=== PATIENT | female | born 1955 | race Caucasian/White ===

== ENCOUNTER 2016-09-23 08:48 | Outpatient (CLI) | payer MEDICARE ==
[2016-09-23] MEDS ORDERED: ISOSORBIDE DINI30 MG PO (09:41)
[2016-09-23] MEDS ORDERED: PLAVIX75 MG PO (09:42)
[2016-09-23] MEDS ORDERED: REMERON15 MG PO (09:43)
[2016-09-23] MEDS ORDERED: BAYER CHEWABLE81 MG PO (09:43)
[2016-09-23] MEDS ORDERED: XANAX XR0.5 MG PO (09:44)
[2016-09-23] MEDS ORDERED: LIPITOR20 MG PO (09:44)
[2016-09-23] MEDS ORDERED: PROPRANOLOL HCL20 MG PO (09:45)
[2016-09-23] MEDS ORDERED: OMEPRAZOLE20 M1 PO (09:45)
[2016-09-23] MEDS ORDERED: LEXAPRO20 MG PO (09:46)
[2016-09-23 10:13] LABS: BASOPHILS 0.3 % (0.0-2.0); EOSINOPHILS 1.1 % (0-7); HEMATOCRIT 40.8 % (36.0-48.0); HEMOGLOBIN 13.2 g/dL (12-16); IMMATURE GRANULOCYTES 0.2 % (0-5); LYMPHOCYTES 39.1 % (15-50); MCH 31.1 pg (26.0-34.0); MCHC 32.4 g/dL (31.0-37.0); MCV 96.2 fL (80.0-100.0); MONOCYTES 6.4 % (2-11); NEUTROPHILS 52.9 % (40-80); PLATELET COUNT 144 10x3/uL (130-400); RBC 4.24 10x6/uL (4.00-5.40); RDW 13.7 % (11.5-14.5); WBC 6.3 10x3/uL (4.8-10.8)
[2016-09-23 10:30] LABS: CALC OSMOLALITY 285 mosm/kg (275-300); CALCIUM 8.5 mg/dL (8.5-10.1); CARBON DIOXIDE 25.2 mmol/L (21.0-32.0); CHLORIDE - SERUM 108 mmol/L (98-107); CREATININE - SERUM 0.6 mg/dL (0.6-1.3); GLUCOSE 124 mg/dL (74-106); POTASSIUM - SERUM 3.5 mmol/L (3.5-5.1); SODIUM 143 mmol/L (136-145); UREA NITROGEN 12 mg/dL (7-18); eGFR NON AFRICAN AMERICAN > 90 mL/min (90-120)
== END 2016-09-23 17:57 | disposition home or self-care (01) ==
LOC: D.CATH 08:48
PROVIDERS: Internal Medicine Interventional Cardiology
DX: I25.119 Atherosclerotic heart disease of native coronary artery with unspecified angina pectoris (principal); I73.9 Peripheral vascular disease, unspecified
CPT/HCPCS: 93458; C9600

== ENCOUNTER 2016-10-07 08:47 | Outpatient (CLI) | payer MEDICARE ==
[~2016-10-07] VITALS: Ht 157.5 cm; Wt 84.1 kg
--- NOTE | ~2016-10-07 | HP ---
PATIENT: PRAVEEN SIFUENTES MEDICAL RECORD: [id number] ACCOUNT: [id number] LOCATION:[facility] : 51 ADMISSION DATE: 10/07/16 HISTORY AND PHYSICAL EXAMINATION ADMITTING DIAGNOSES: 1. Angina. 2. Coronary artery disease. 3. Recent percutaneous transluminal coronary angioplasty stent of the right coronary artery with concomitant disease of the left circumflex. 4. Hypertension. 5. Hyperlipidemia. HISTORY OF PRESENT ILLNESS: Mrs. Sifuentes presented with unstable anginal symptomatology, found to have 2-vessel disease of the RCA and left circumflex, underwent successful PTCA stent of the RCA. She is now brought back for PTCA stent of the circumflex in a staged fashion. PHYSICAL EXAMINATION: GENERAL APPEARANCE: Well-nourished, well-developed, appears stated age. Level of distress, comfortable. PSYCHIATRIC: Mental status, alert, normal affect. Orientation, oriented to time, place and person. EYES: Lids and conjunctiva, noninjected. No discharge, no pallor. ENT: Lips, teeth, gums, normal dentition. Oropharynx, no cyanosis, no pallor. NECK: Carotid arteries, bilateral normal upstroke, no bruits, no thrills. JUGULAR VEINS: No jugular venous pressure or distention. CERVICAL LYMPH NODES: Nontender, nonenlarged. THYROID: Not enlarged. Nontender. No nodules. LUNGS: Respiratory effort, unlabored. CHEST: Normal curvature. No thoracic deformity. No chest wall tenderness. Percussion, resonant. Auscultation, clear. No wheezes, no rales, no rhonchi. CARDIOVASCULAR: Precordial exam, nondisplaced. No heaves or pericardial thrills. Rate and rhythm, regular. Heart sounds, normal S1, normal S2. No S3, no gallop, no rub. Systolic murmur, not heard. Diastolic murmur, not heard. EXTREMITIES: No cyanosis, no edema. Peripheral pulses, full and equal in all extremities, except as noted. No bruits appreciated. ABDOMEN: Soft, nondistended. Normal aorta. No bruit. Nontender. No masses. Liver, nontender, no hepatomegaly. Spleen, nontender, no splenomegaly. MUSCULOSKELETAL: No joint tenderness. No joint swelling. No erythema. NEUROLOGICAL: Normal gait, normal strength, normal tone. SKIN: Warm and dry. REVIEW OF SYSTEMS: The patient reports easy bruising but reports no swollen glands. The patient reports no fever, no night sweats, no significant weight gain, no significant weight loss. No significant exercise tolerance. The patient reports no dry eyes, no irritation, no vision change. Patient reports no difficulty hearing and no ear pain. Patient reports no frequent nose bleeds or nose and sinus problems. Patient reports on arm pain on exertion. No shortness of breath while lying down. No history of heart murmur. Patient reports no cough, no wheezing or coughing up blood. Patient reports no abdominal pain, no vomiting. Normal appetite. No diarrhea and not vomiting blood. No nausea and no constipation. Patient reports no incontinence. No difficulty urinating. No hematuria. No increased frequency. Patient reports no muscle aches. No weakness, no arthralgias, no back pain. No swelling of the HISTORY AND PHYSICAL [id number] MARIA,PRAVEEN extremities. Patient reports no abnormal mole, no jaundice, no rashes. Reports no loss of consciousness. No weakness and no numbness. No seizures, dizziness, or headaches. The patient reports no depression, no sleep disturbance, feeling safe in a relationship and no alcohol abuse. Patient reports on fatigue. Reports no runny nose or sinus pressure. No itching, no hives, and no frequent sneezing. OVERALL IMPRESSION: Anginal symptomatology with significant disease of the left circumflex. We will proceed with percutaneous transluminal coronary angioplasty stent of the left circumflex. TRANSINT:[id number] Voice Confirmation ID: [id number] DOCUMENT ID: [id number] SAHARA KRISHNAN MD CC: [id number] DICTATION DATE: 10/07/16 0953 SOCIOLOGY RESEARCH ASSISTANT: 10/07/16 1100 REG [facility] [address] [place] [address]
--- NOTE | ~2016-10-07 | HEMODYNAMI ---
PATIENT:PRAVEEN SIFUENTES MEDICAL RECORD: [id number] : 51 LOCATION:[place] ADMISSION DATE: 10/07/16 Generatedon:10/07/201612:07 Patient name: PRAVEEN SIFUENTES Patient #: [id number] SSN: : Date of study: 10/07/2016 Page: Of Hemodynamic Procedure Report Patient Data Patient Demographics Procedure consent was obtained First Name: PRAVEEN Gender: Female Last Name: MARIA : 1955 Patient #: [id number] Age: 60 year(s) Race: Unknown Additional ID: [id number] Contact details [address]: [address] [place] [address] State: [place] City: [place] Zip code: [address] Past Medical History Allergies: No known allergies Admission Admission Data Admission Date: 10/07/2016 Admission Time: 8:47 Height (in.): 62 BSA: 1.85 (m2) Height (cm.): 157.48 BMI: 33.84 (kg/m2) Weight (lbs.): 185 Weight (kg.): 83.91 Medications upon Admission Medications Dosage Times Administered Last Remarks per Delivery Day Date and Time Clopidogrel Yes 10/07/2016 0:00 Lab Results Lab Result Date: 10/07/2016 Lab Result Time: 0:00 Biochemistry Name Units Result Min Max Creatinine mg/dl 0.6 --(*---)-- 0.6 1.3 CBC Name Units Result Min Max Hemoglobin g/dl 14 --(*---)-- 13.5 17.5 Procedure Procedure Types Cath Procedure PCI Procedure Coronary Stent Initial Miscellaneous Procedures Moderate Sedation up to 15 minutes Procedure Description Procedure Date Procedure Date: 10/07/2016 Procedure Start Time: 11:55 Procedure End Time: 12:06 Procedure Staff Name Function Shayne Miller MD Performing Physician Gary Whittaker RT Scrub Solomon Bautista RN Nurse Tori Aguirre RT Monitor Procedure Data Cath Procedure Fluoroscopy Diagnostic fluoroscopy Total fluoroscopy Time: 1.3 time: 1.3 min min Diagnostic fluoroscopy Total fluoroscopy dose: dose: 86.26 mGy 86.26 mGy Contrast Material Contrast Material Type Amount (ml) Isovue 300 39 Entry Location Entry Primary Successful Side Size Upsize Upsize Entry Closure Succes sful Closure Location (Fr) 1 (Fr) 2 (Fr) Remarks Device Remarks Femoral Left 6 Fr Exoseal artery Short Estimated blood loss: 10 ml Diagnostic catheters Device Type Used For End Catheter Placement Diagnostic Infinity 5Fr Right Coronary 3DRC catheter Angiography Procedure Complications No complications Procedure Medications Medication Administration Route Dosage Oxygen NC 2 l/min Heparin Flush Bag added to field 2 bags (1000units/500ml NS) 0.9% NaCl I.V. 100 ml/hr Fentanyl I.V. 50 mcg Versed I.V. 1 mg Fentanyl I.V. 50 mcg Versed I.V. 1 mg Fentanyl I.V. 50 mcg Fentanyl I.V. 50 mcg Heparin Bolus I.V. 4000 units Hemodynamics Rest BSA: 1.85 (m2) HGB: 14 (g/dl) O2 Consumption: Estimated: 162.16 (ml/min) O2 Cons umption indexed: Estimated:87.65 (ml/min/m) Heart Rate: 53 (bpm) Snapshots Pre Cath Intra NCS Post Cath Vital Signs Time Heart Resp SPO2 NIBP (mmHg) Rhythm Pain Sedation Rate (ipm) (%) Status Level (bpm) 11:36:12 53 21 95 140/70(97) NSR 0 (11) 10(A) , No pain 11:40:32 54 22 94 137/67(127) NSR 0 (11) 10(A) , No pain 11:44:42 55 19 94 117/69(104) NSR 0 (11) 10(A) , No pain 11:48:48 52 20 94 104/68(98) NSR 0 (11) 10(A) , No pain 11:52:58 48 19 95 109/65(80) NSR 0 (11) 9(A) , No pain 11:57:11 56 17 96 112/60(91) NSR 0 (11) 9(A) , No pain 12:01:26 48 18 93 103/63(86) NSR 0 (11) 9(A) , No pain 12:05:29 55 17 93 104/84(99) NSR 0 (11) 9(A) , No pain Medications Time Medication Route Dose Verified Delivered Reason Notes Effectiveness by by 11:40:35 Oxygen NC 2 Solomon Turpiny Per physician l/min Michele Bautista RN RN 11:40:48 Heparin Flush added 2 Solomon Solomon used for Bag to bags Michele Bautista RN procedure (1000units/500ml field RN NS) 11:41:23 0.9% NaCl I.V. 100 Solomon Turpiny Per physician ml/hr Michele Bautista RN RN 11:49:55 Fentanyl I.V. 50 Solomon Solomon for sedation mcg Michele Bautista RN RN 11:50:02 Versed I.V. 1 mg Solomon Solomon for sedation Michele Bautista RN RN 11:52:20 Fentanyl I.V. 50 Solomon Solomon for sedation mcg Michele Bautista RN RN 11:52:27 Versed I.V. 1 mg Solomon Solomon for sedation Michele Bautista RN RN 11:56:28 Fentanyl I.V. 50 Solomon Solomon for sedation mcg Michele Bautista RN RN 11:59:32 Fentanyl I.V. 50 Solomon Solomon for sedation mcg Michele Bautista RN RN 11:59:43 Heparin Bolus I.V. 4000 Solomon Solomon for units Michele Bautista RN anticoagulation ecd Log Time Note 11:09:13 Patient Height : 157.48 cm 11:09:15 Patient Weight : 83.91 kg 11:09:31 H&P Date Dictated: 10/07/2016 New H&P dictated by physician.. 11:09:39 ACC The patient was administered the following blood thiners within the last 24 hours: ACCPlavix 11:10:06 Solomon Bautista RN sent for patient. Start room use. 11:18:08 Time tracking: Regular hours 11:18:12 Plan of Care:Hemodynamics will remain stable., Cardiac rhythm will remain stable., Comfort level will be maintained., Respiratory function will remain adequate., Patient/ family verbilizes understanding of procedure., Procedure tolerated without complication., Recovers from procedure without complications.. 11:27:10 Patient received from Pre/Post Procedure Room to [facility] 3 Alert and oriented. Tansferred to table in Supine position. 11:27:11 Warm blankets applied, and fredi hugger turned on for patient comfort. 11:27:11 Correct patient and procedure confirmed by team. 11:27:13 Signed procedure consent form obtained from patient. 11:27:14 ECG and BP/O2 sat monitors applied to patient. 11:27:15 Full Disclosure recording started 11:35:06 Vital chart was started 11:36:17 Baseline sample Acquired. 11:36:22 Rhythm: sinus bradycardia 11:36:25 Pre-procedure instructions explained to patient. 11:36:25 Pre-op teaching completed and patient verbalized understanding. 11:36:28 Family in waiting room. 11:36:30 Patient NPO since Midnight. 11:36:45 Is the patient allergic to Iodine/contrast media? No. 11:36:47 Is patient on blood thinner?Yes 11:36:49 ACC The patient was administered the following blood thiners within the last 24 hours: ACCPlavix 11:36:55 Patient diabetic? No. 11:36:58 Previous problem with sedation/anesthesia? No ? 11:36:59 Snore? Yes 11:37:00 Sleep apnea? No 11:37:01 Deviated septum? No 11:37:02 Opens mouth fully? Yes 11:37:02 Sticks out tongue? Yes 11:37:05 Airway obstruction? No ? 11:37:12 Dentures? Yes In 11:37:15 Pre procedure: left dorsailis pedis pulse 2+ Normal; easily identifiable; not easily obliterated 11:37:17 Patient pain scale 0/10 ?. 11:37:26 IV patent on arrival in left forearm with 0.9% NaCl at [facility]. 11:37:50 Lab Result : Creatinine 0.6 mg/dl 11:37:50 Lab Result : Hemoglobin 14 g/dl 11:37:53 Lab results completed and on chart. 11:37:56 Left groin area was prepped with chlora-prep and draped in sterile fashion 11:37:56 Alarms reviewed by R. N. 11:37:57 Sharps counted by scrub and verified by R.N. 11:38:10 Use device set Femoral PCI 11:38:11 Acist Syringe opened to sterile field. 11:38:11 Acist Hand Control opened to sterile field. 11:38:12 Bag Decanter opened to sterile field. 11:38:12 Medline Cath Pack opened to sterile field. 11:38:13 Terumo 6Fr Eastpointe Sheath opened to sterile field. 11:38:13 St Carlos A 260cm J .035 wire opened to sterile field. 11:38:14 Merit BasixCompak Inflation Kit opened to sterile field. 11:38:14 Acist Manifold opened to sterile field. 11:38:14 Tegaderm 4 x 4 opened to sterile field. 11:38:20 Mejia Whisper J 300cm 0.014 guide wire opened to sterile field. 11:40:35 Oxygen 2 l/min NC was administered by Solomon Bautista RN; Per physician; 11:40:48 Heparin Flush Bag (1000units/500ml NS) 2 bags added to field was administered by Solomon Bautista RN; used for procedure; 11:41:23 0.9% NaCl 100 ml/hr I.V. was administered by Solomon Bautista RN; Per physician; 11:49:24 Final Timeout: patient, procedure, and site verified with staff and physician. All members of the team are in agreement. 11:49:26 Left groin site verified by team. 11:49:29 Physical assessment completed. ASA score P 2 - A patient with mild systemic disease as per Shayne Miller MD. 11:49:31 Sedation plan: IV Moderate Sedation Versed, Fentanyl 11:49:33 Zero performed for pressure channel P1 11:49:55 Fentanyl 50 mcg I.V. was administered by Solomon Bautista RN; for sedation; 11:50:02 Versed 1 mg I.V. was administered by Solomon Bautista RN; for sedation; 11:52:20 Fentanyl 50 mcg I.V. was administered by Solomon Bautista RN; for sedation; 11:52:27 Versed 1 mg I.V. was administered by Solomon Bautista RN; for sedation; 11:55:38 Procedure started. 11:55:42 Local anesthetic to left femerol artery with Lidocaine 2% by Shayne Miller MD.INITIAL ACCESS ONLY 11:56:28 Fentanyl 50 mcg I.V. was administered by Solomon Bautista RN; for sedation; 11:56:53 A 6 Fr Short sheath was inserted into the Left Femoral artery 11:57:18 6 Fr XBLAD 3.5 guide catheter was inserted over the wire 11:59:32 Fentanyl 50 mcg I.V. was administered by Solomon Bautista RN; for sedation; 11:59:43 Heparin Bolus 4000 units I.V. was administered by Solomon Bautista RN; for anticoagulation; 12:00:21 Whisper wire advanced. 12:00:45 Inflation Number: 1 A Medtronic Resolute 3.0 X 12 stent was prepped and advanced across the Prox CX. The stent was deployed at 15 NIMO for 0:10 (min:sec). 12:00:53 Stent catheter was removed intact over wire. 12:00:53 Wire removed. 12:00:53 Guide catheter removed. 12:01:23 A Diagnostic Infinity 5Fr 3DRC catheter was advanced over the wire and used for Right Coronary Angiography. 12::44 Catheter removed. 12:02:51 Sheath removed intact; hemostasis achieved with Exoseal to the Left Femoral artery. 12:02:55 Procedure ended.(Physican Out) 12:03:00 Cordis 6Fr Exoseal opened to sterile field. 12:03:08 Fluoroscopy time 01.30 minutes. 12:03:13 Flurop Dose total: 86.26 12:03:13 Fluoroscopy dose: 86.26 mGy 12:03:22 Contrast amount:Isovue 300 39ml. 12:03:23 Sharps counted by scrub and verified by R.N. 12:03:24 Insertion/operative site no bleeding no hematoma. 12:03:27 Post-op/insertion site Left Femoral artery dressed using a 4 x 4 and Tegaderm. 12:03:31 Post left femerol artery:stable, clean and dry 12:03:35 Post Procedure Pulses reassessed and unchanged 12:03:43 Post-procedure physical assessment completed. ASA score P 2 - A patient with mild systemic disease as per Shayne Miller MD. 12:03:45 Post procedure rhythm: unchanged. 12:03:47 Estimated blood loss: 10 ml 12:03:49 Post procedure instruction explained to patient.Patient verbalizes understanding. 12:03:49 Patient needs reinforcement of post procedure teaching. 12:04:36 Procedure type changed to Cath procedure, PCI procedure, Coronary Stent Initial, Miscellaneous Procedures, Moderate Sedation up to 15 minutes 12:04:41 Procedure Complication : No complications 12:04:44 See physician's report for complete and final results. 12:05:30 Cordis 6FR XBLAD 3.5 guide catheter opened to sterile field. 12:05:52 Procedure and supply charges have been captured, reviewed, submitted and are correct. 12:05:58 Report given to Pre/Post Procedure Room. 12:06:47 Patient transfered to Pre/Post Procedure Room with Stretcher. 12:06:47 Vital chart was stopped 12:06:49 Procedure ended. 12:06:49 Full Disclosure recording stopped 12:07:02 End room use (Document Last) Intervention Summary Intervention Notes Time ActionType Lesion and Equipment Action# Pressure Duration Attributes Used 12:00:45 Place stent Prox CX Medtronic 1 15 00:10 Resolute 3.0 X 12 stent Device Usage Item Name Manufacture Quantity Catalog Hospital Part Current Minimal Lot# / Number Charge Number Stock Stock Serial# Code Acist Acist 1 54598 275641 022401 078362 20 Syringe Medical Systems Inc Acist Hand Acist 1 30648 873333 944007 525101 5 Travel Notes Medical Systems Inc Bag Microtek 1 2002S 423771 46771 623457 5 Yooli Medical Inc. Medline Cardinal 1 [id number] 909267 28310 543248 5 Cath Pack Health Terumo 6Fr Terumo 1 [id number] 311589 612064 382604 [address] [facility] A [facility] Carlos A 1 217137 057165 609310 651502 30 260cm J .035 wire Merit Merit 1 [id number] 738563 108388 250305 15 BasixBio-Intervention Specialists Medical Inflation Kit Acist Acist 1 09951 370679 283869 541277 5 mobile melting gmbh Medical Systems Inc Tegaderm 4 3M 1 1626W 687365 724889 876574 5 x 4 Mejia Mejia 1 [id number] 476850 619198 943620 5 Whisper J Vascular 300cm 0.014 guide wire Medtronic Medtronic 1 [id number] 473389 249789 0 [id number] Resolute 3.0 X 12 stent Diagnostic Cardinal 1 [id number] 057262 116560 640637 9 Repka.com 5Fr 3DRC catheter Cordis 6Fr Cardinal 1 EX600 750791 903673 674272 10 Groopt Cordis 6FR Cardinal 1 [id number] 594929 074444 376410 10 XBLAD 3.5 Health guide catheter Signature Audit [place] Stage Time Signature Unsigned Intra-Procedure 10/07/2016 Tori 12:07:47 PM Counts RT(R) Signatures Monitor : Tori Signature : Counts RT Date : Time : [address] [place] [address]
--- NOTE | ~2016-10-07 | OP ---
PATIENT NAME: PRAVEEN SIFUENTES MEDICAL RECORD: [id number] :51 LOCATION:D.CAT ADMISSION DATE: SURGEON: SAHARA KRISHNAN MD DATE OF OPERATION: 10/07/2016 PROCEDURES: 1. PTCA stent, left circumflex. 2. Selective coronary angiography. INDICATIONS: Angina and coronary artery disease. PROCEDURE IN DETAIL: After informed consent was obtained and after a detailed explanation of risks, benefits as well as alternative therapies, the patient elected to proceed with angiogram and angioplasty. The right femoral area was prepped and draped in normal sterile fashion. The right femoral artery was cannulated via modified Seldinger technique with placement of 6-Arabic sheath. All catheters exchanged through this sheath. FINDINGS: The left circumflex has a 70%-80% stenosis in the proximal vessel. This was addressed with a 3.0 x 12 mm Resolute stent taken to 15 atmospheres. Result was 0% residual stenosis. OVERALL IMPRESSION: Successful percutaneous transluminal coronary angioplasty stent of the left circumflex going from 70%-80% initial stenosis to 0% residual. TRANSINT:[id number] Voice Confirmation ID: [id number] DOCUMENT ID: [id number] SAHARA KRISHNAN MD CC: [id number] DICTATION DATE: 10/07/16 1205 LIEN SEARCHER: 10/07/162020 [facility] CLI 10/07/16 [place] [id number] [place] [address]
[~2016-10-07 08:47] MED LIST: BAYER CHEWABLE81 MG PO; ISOSORBIDE DINI30 MG PO; LEXAPRO20 MG PO; LIPITOR20 MG PO; OMEPRAZOLE20 M1 PO; PLAVIX75 MG PO; PROPRANOLOL HCL20 MG PO; REMERON15 MG PO; XANAX XR0.5 MG PO
[2016-10-07 09:35] VITALS: BP 135/62; Ht 157.5 cm; Wt 84.1 kg
[2016-10-07 10:08] LABS: BASOPHILS 0.3 % (0.0-2.0); EOSINOPHILS 1.7 % (0-7); HEMATOCRIT 42.6 % (36.0-48.0); IMMATURE GRANULOCYTES 0.2 % (0-5); LYMPHOCYTES 31.1 % (15-50); MCH 31.4 pg (26.0-34.0); MCHC 32.9 g/dL (31.0-37.0); MCV 95.5 fL (80.0-100.0); MEAN PLATELET VOLUME 9.7 fL (7.4-10.4); MONOCYTES 8.1 % (2-11); NEUTROPHILS 58.6 % (40-80); PLATELET COUNT 153 10x3/uL (130-400); RBC 4.46 10x6/uL (4.00-5.40); RDW 13.9 % (11.5-14.5)
[2016-10-07 10:16] LABS: CALC OSMOLALITY 285 mosm/kg (275-300); CALCIUM 8.5 mg/dL (8.5-10.1); CARBON DIOXIDE 24.6 mmol/L (21.0-32.0); CHLORIDE - SERUM 108 mmol/L (98-107); CREATININE - SERUM 0.6 mg/dL (0.6-1.3); GLUCOSE 122 mg/dL (74-106); POTASSIUM - SERUM 3.8 mmol/L (3.5-5.1); SODIUM 143 mmol/L (136-145); UREA NITROGEN 12 mg/dL (7-18); eGFR NON AFRICAN AMERICAN > 90 mL/min (90-120)
--- NOTE | 2016-10-07 15:17 | NUR ---
1235 LYING FLAT, RESTING WITH EYES CLOSED. ALL VITALS WNL. LEFT GROIN EXOSEAL C/D/I WITH NO HEMATOMA OR BLEEDING. FAMILY AT SIDE. 1330 REMAINS FLAT, R GROIN C/D/I WITH NO HEMATOMA OR BLEEDING. PULSES PALP X4.
--- NOTE | 2016-10-07 15:28 | NUR ---
1330 PATIENT C/O BACK PAIN. NORCO GIVEN ...WILL MONITOR FOR EFFECTIVENESS.
--- NOTE | 2016-10-07 16:23 | NUR ---
1430 EATING TURKEY SANDWICH, FAMILY AT SIDE. L GROIN REMAINS C/D/I WITH NO HEMATOMA OR BLEEDING. ALL VITALS WNL. 1530 SITTING UP IN BED, PIV REMOVED FROM LEFT HAND WITH BANDAID APPLIED. 1600 UP TO BEDSIDE TO DRESS. D/C INSTRUCTIONS DISCUSSED WITH PATIENT AND FAMILY AT BEDSIDE. L GROIN REMAINS C/D/I WITH NO HEMATOMA OR BLEEDING. WHEELED OUT VIA WHEELCHAIR.
== END 2016-10-07 16:27 | disposition home or self-care (01) ==
LOC: D.CATH 08:47
PROVIDERS: Internal Medicine Interventional Cardiology
DX: I25.119 Atherosclerotic heart disease of native coronary artery with unspecified angina pectoris (principal); Z95.5 Presence of coronary angioplasty implant and graft; I10 Essential (primary) hypertension; E78.5 Hyperlipidemia, unspecified

== ENCOUNTER 2016-10-10 01:09 | Outpatient (CLI) | payer MEDICARE ==
--- NOTE | ~2016-10-10 | HEMODYNAMI ---
PATIENT:PRAVEEN SIFUENTES MEDICAL RECORD: [id number] : 51 LOC[address] [id number] ADMISSION DATE: 10/10/16 Generatedon:10/10/201613:15 Patient name: PRAVEEN SIFUENTES Patient #: [id number] : 1955 Date of study: 10/10/2016 Page: Of Hemodynamic Procedure Report Patient Data Patient Demographics Procedure consent was obtained First Name: PRAVEEN Gender: Female Last Name: MARIA : 1955 [facility] Initial: L Age: 60 year(s) Patient #: [id number] Race: Unknown SSN: [id number] Additional ID: [id number] Contact details Address: [address] [place] [address] State: [place] City: [place] Zip code: [address] Past Medical History Allergies: No known allergies Admission Admission Data Admission Date: 10/10/2016 Admission Time: 1:00 Room #: 2125 Lab Results Lab Result Date: 10/07/2016 Lab Result Time: 0:00 Biochemistry Name Units Result Min Max Creatinine mg/dl 0.6 --(*---)-- 0.6 1.3 CBC Name Units Result Min Max Hemoglobin g/dl 14 --(*---)-- 13.5 17.5 Procedure Procedure Types Cath Procedure Diagnostic Procedure LHC [facility] w/Coronaries PCI Procedure Miscellaneous Procedures Moderate Sedation up to 15 minutes Peripheral Cath Diagnostic Procedure Cath Peripheral Ticmq-Cdepbqb-Qzb-Off Procedure Description Procedure Date Procedure Date: 10/10/2016 Procedure Start Time: 12:48 Procedure End Time: 13:15 Procedure Staff Name Function Shayne Miller MD Performing Physician Brinda Davidson RT Scrub Arleen Jimenez RN Nurse Yanique Oscar RT Monitor Procedure Data Cath Procedure Fluoroscopy Diagnostic fluoroscopy Total fluoroscopy Time: 4.6 time: 4.6 min min Diagnostic fluoroscopy Total fluoroscopy dose: 687 dose: 687 mGy mGy Contrast Material Contrast Material Type Amount (ml) Isovue 300 149 Entry Location Entry Primary Successful Side Size Upsize Upsize Entry Closure Succes sful Closure Location (Fr) 1 (Fr) 2 (Fr) Remarks Device Remarks Femoral Right 6 Fr Exoseal artery Short Estimated blood loss: 10 ml Diagnostic catheters Device Type Used For End Catheter Placement Cordis 5Fr 3DRC Catheter Procedure (MP) Cordis 5Fr Pigtail Abdominal Catheter (MP) aortogram with runoff Procedure Complications No complications Procedure Medications Medication Administration Route Dosage Oxygen NC 2 l/min Lidocaine 2% added to field 20 Heparin Flush Bag added to field 2 bags (1000units/500ml NS) 0.9% NaCl I.V. 100 ml/hr Versed I.V. 1 mg Fentanyl I.V. 50 mcg Heparin Bolus I.V. 4000 units Versed I.V. 1 mg Fentanyl I.V. 50 mcg Versed I.V. 0.5 mg Fentanyl I.V. 25 mcg Plavix P.O. 75 mg Hemodynamics Rest HGB: 14 (g/dl) Heart Rate: 85 (bpm) Snapshots Pre Cath Intra NCS Post Cath Vital Signs Time Heart Resp SPO2 etCO2 [id number] NIBP (mmHg) Rhythm Pain Sedation Rate (ipm) (%) (mmHg) (mmHg) Status Level (bpm) 12:37:27 80 27 96 0 0 119/72(99) NSR 0 (11) 10(A) , No pain 12:41:38 75 23 94 0 0 107/61(90) NSR 0 (11) 10(A) , No pain 12:45:42 70 17 94 0 0 117/75(90) NSR 0 (11) 10(A) , No pain 12:49:50 69 15 93 0 0 112/76(102) NSR 0 (11) 10(A) , No pain 12:53:56 74 16 94 0 0 109/75(99) NSR 0 (11) 9(A) , No pain 12:58:01 78 17 95 0 0 111/77(102) NSR 0 (11) 9(A) , No pain 13:02:50 82 15 94 0 0 128/86(107) NSR 0 (11) 9(A) , No pain 13:07:00 83 16 94 0 0 135/86(114) NSR 0 (11) 10(A) , No pain 13:11:14 83 12 93 0 0 134/75(116) NSR 0 (11) 10(A) , No pain Medications Time Medication Route Dose Verified Delivered Reason Notes Effectiveness by by 12:41:32 Oxygen NC 2 Shayne Joseie used for l/min Paul Jimenez RN procedure 12:41:38 Lidocaine 2% added 20ml Shaynelisseth Bella for local to vial Paul Miller MD anesthetic field 12:41:44 Heparin Flush added 2 Shayne Shayne used for Bag to bags Paul Miller MD procedure (1000units/500ml field NS) 12:41:52 0.9% NaCl I.V. 100 Shaynelisseth Garciaie Per physician ml/hr Paul Jimenez RN 12:48:42 Versed I.V. 1 mg Shayne Bacon for sedation Paul Jimenez RN 12:48:48 Fentanyl I.V. 50 Shayne Bacon for sedation mcg Paul Jimenez RN 12:53:44 Heparin Bolus I.V. 4000 Shayne Bacon for verifi ed units Paul Jimenez RN anticoagulation with dr miller 12:55:21 Versed I.V. 1 mg Shayne Bacon for sedation Paul Jimenez RN 12:55:25 Fentanyl I.V. 50 Shayne Bacon for sedation mcg Paul Jimenez RN 13:01:21 Versed I.V. 0.5 Shayne Garciaie for sedation mg Paul Jimenez RN 13:01:27 Fentanyl I.V. 25 Shayne Bacon for sedation mcg Paul Jimenez RN 13:08:00 Plavix P.O. 75 mg Shayne Bacon for Paul Jimenez RN antiplatelet therapy Procedure Log Time Note 12:20:39 Diagnostic Cath Status : Elective 12:21:25 Arleen Jimenez RN sent for patient. Start room use. 12:22:22 Time tracking: Regular hours 12:22:28 Plan of Care:Hemodynamics will remain stable., Cardiac rhythm will remain stable., Comfort level will be maintained., Respiratory function will remain adequate., Patient/ family verbilizes understanding of procedure., Procedure tolerated without complication., Recovers from procedure without complications.. 12:22:49 Patient received from Med II to CCL 1 Alert and oriented. Tansferred to table in Supine position. 12:34:34 Warm blankets applied, and fredi hugger turned on for patient comfort. 12:34:35 Correct patient and procedure confirmed by team. 12:34:38 Signed procedure consent form obtained from patient. 12:34:39 ECG and BP/O2 sat monitors applied to patient. 12:36:24 Vital chart was started 12:36:29 Baseline sample Acquired. 12:37:20 Rhythm: sinus rhythm 12:37:22 Full Disclosure recording started 12:37:27 H&P Date Dictated: 10/10/2016 New H&P dictated by physician.. 12:37:28 Pre-procedure instructions explained to patient. 12:37:29 Pre-op teaching completed and patient verbalized understanding. 12:37:30 Family in waiting room. 12:37:31 Patient NPO since Midnight. 12:37:39 Is the patient allergic to Iodine/contrast media? No. 12:37:41 Was the patient premedicated? No 12:37:42 Is patient on blood thinner?Yes 12:37:47 ACC The patient was administered the following blood thiners within the last 24 hours: ACCPlavix 12:37:50 Patient diabetic? No. 12:37:58 Previous problem with sedation/anesthesia? No ? 12:39:28 Snore? Yes 12:39:31 Sleep apnea? No 12:39:32 Deviated septum? No 12:39:34 Opens mouth fully? Yes 12:39:41 Dentures? No ? 12:39:49 Patient pain scale 0/10 ?. 12:40:00 IV patent on arrival in left forearm with 0.9% NaCl at [facility]. 12:40:43 Lab results completed and on chart. 12:40:49 Right groin area was prepped with chlora-prep and draped in sterile fashion 12:40:50 Alarms reviewed by R. N. 12:40:50 Sharps counted by scrub and verified by R.N. 12:41:32 Oxygen 2 l/min NC was administered by Arleen Jimenez RN; used for procedure; 12:41:38 Lidocaine 2% 20ml vial added to field was administered by Shayne Miller MD; for local anesthetic; 12:41:44 Heparin Flush Bag (1000units/500ml NS) 2 bags added to field was administered by Shayne Miller MD; used for procedure; 12:41:52 0.9% NaCl 100 ml/hr I.V. was administered by Arleen Jimenez RN; Per physician; 12:44:10 Physician paged 12:47:47 Physician arrived 12:47:47 --------ALL STOP TIME OUT------ 12:47:49 Final Timeout: patient, procedure, and site verified with staff and physician. All members of the team are in agreement. 12:47:53 Right groin site verified by team. 12:47:59 Sedation plan: IV Moderate Sedation Versed, Fentanyl 12:48:34 Procedure started. 12:48:42 Versed 1 mg I.V. was administered by Arleen Jimenez RN; for sedation; 12:48:48 Fentanyl 50 mcg I.V. was administered by Arleen Jimenez RN; for sedation; 12:48:51 Local anesthetic to right femoral artery with Lidocaine 2% by Shayne Miller MD.INITIAL ACCESS ONLY 12:49:02 A 6 Fr Short sheath was inserted into the Right Femoral artery 12:50:03 Use device set Femoral Dx 12:50:11 Acist Syringe opened to sterile field. 12:50:12 Bag Decanter opened to sterile field. 12:50:14 Medline Cath Pack opened to sterile field. 12:50:24 Terumo 6Fr Paterson Sheath opened to sterile field. 12:50:25 St Carlos A 260cm J .035 wire opened to sterile field. 12:50:36 A Cordis 5Fr 3DRC Catheter (MP) was advanced over the wire and used for Procedure. 12:50:46 RCA angiography performed. 12:50:49 Catheter removed. 12:50:55 Acist Hand Control opened to sterile field. 12:50:56 Acist Manifold opened to sterile field. 12:50:58 Tegaderm 4 x 4 opened to sterile field. 12:51:35 Cordis 6FR XBLAD 3.5 guide catheter opened to sterile field. 12:51:53 LCA angiography performed. 12:52:54 Merit BasixCompak Inflation Kit opened to sterile field. 12:53:16 Mejia Whisper J 300cm 0.014 guide wire opened to sterile field. 12:53:44 Heparin Bolus 4000 units I.V. was administered by Arleen Jimenez RN; for anticoagulation; verified with dr miller 12:54:08 Proceeding to intervention. 12:54:18 Whisper wire advanced. 12:55:21 Versed 1 mg I.V. was administered by Arleen Jimenez RN; for sedation; 12:55:25 Fentanyl 50 mcg I.V. was administered by Arleen Jimenez RN; for sedation; 13:00:34 IVUS catheter advanced over wire. 13:00:59 IVUS catheter removed over wire. 13:01:17 [place] Eagleye IVUS Catheter opened to sterile field. 13:01:21 Versed 0.5 mg I.V. was administered by Arleen Jimenez RN; for sedation; 13:01:27 Fentanyl 25 mcg I.V. was administered by Arleen Jimenez RN; for sedation; 13:02:06 Inflation Number: 1 A Shutter Guardiantronic Resolute 3.0 X 15 stent was prepped and advanced across the Prox LAD. The stent was deployed at 11 NIMO for 0:10 (min:sec). 13:03:26 Stent catheter was removed intact over wire. 13:03:31 Wire removed. 13:03:33 Guide catheter removed. 13:04:09 A Cordis 5Fr Pigtail Catheter (MP) was advanced over the wire and used for Abdominal aortogram with runoff. 13:04:31 Abdominal angiogram w/ runoff was performed. 13:04:41 Left leg runoff performed. 13:05:01 Right leg runoff performed. 13:05:15 Catheter removed. 13:07:36 Cordis 6Fr Exoseal opened to sterile field. 13:07:49 Sheath removed intact; hemostasis achieved with Exoseal to the Right Femoral artery. 13:07:52 Procedure ended.(Physican Out) 13:08:00 Plavix 75 mg P.O. was administered by Arleen Jimenez RN; for antiplatelet therapy; 13:08:09 Fluoroscopy time 04.60 minutes. 13:08:16 Fluoroscopy dose: 687 mGy 13:08:16 Flurop Dose total: 687 13:08:31 Contrast amount:Isovue 300 149ml. 13:08:34 Sharps counted by scrub and verified by R.N. 13:08:38 Insertion/operative site no bleeding no hematoma. 13:08:42 Post-op/insertion site Right Femoral artery dressed using a 4 x 4 and Tegaderm. 13:08:48 Post Procedure Pulses reassessed and unchanged 13:08:52 Post-procedure physical assessment completed. ASA score P 2 - A patient with mild systemic disease as per Shayne Miller MD. 13:08:58 Post procedure rhythm: unchanged. 13:09:07 Estimated blood loss: 10 ml 13:09:16 Post procedure instruction explained to patient.Patient verbalizes understanding. 13:10:09 Procedure type changed to Cath procedure, Diagnostic procedure, LHC, LHC w/Coronaries, PCI procedure, Miscellaneous Procedures, Moderate Sedation up to 15 minutes, Peripheral Cath Diagnostic Procedure, Cath Peripheral, Kwxol-Ofjtaet-Vrz-Off 13:10:11 Procedure and supply charges have been captured, reviewed, submitted and are correct. 13:14:50 Procedure Complication : No complications 13:14:53 Vital chart was stopped 13:14:54 See physician's report for complete and final results. 13:15:00 Patient transfered to [facility] II with Stretcher. 13:15:03 Procedure ended. 13:15:03 Full Disclosure recording stopped 13:15:06 End room use (Document Last) 13:15:06 End room use (Document Last) Intervention Summary Intervention Notes Time ActionType Lesion and Equipment Action# Pressure Duration Attributes Used 13:02:[address] Place stent Prox LAD Medtronic 1 11 00:10 Resolute 3.0 X 15 stent Device Usage Item Name Manufacture Quantity Catalog Hospital Part Current Minimal Lot# / Number Charge Number Stock Stock Serial# Code Acist Acist 1 43469 [id number] 240319 240829 20 Syringe [employer] Inc Bag Microtek 1 [id number] 74913 805140 5 [employer]. Medline Cardinal 1 [id number] 822731 84412 110831 5 Cath Pack Health Terumo 6Fr Terumo 1 [id number] 461258 266992 979041 [address] [facility] Carlos A 1 [id number] 043680 443310 737732 30 260cm J .035 wire Cordis 5Fr Cardinal 1 [id number] 5 [facility] Conveneer Catheter (MP) Acist Hand Acist 1 61625 160638 030600 784577 5 Finders[employer] Acist Acist 1 11904 559792 984285 461675 5 Radio Rebel [employer] Inc Tegaderm 4 3M 1 1626W 565550 894940 018023 5 x 4 Cordis 6FR Cardinal 1 [id number] 445056 745875 947733 10 XBLAD 3.5 Health guide catheter [facility] 1 [id number] 638905 860632 129746 15 BasixCompak Medical Inflation Kit Mejia Mejia 1 [id number] 452120 400630 761972 5 Whisper J Vascular 300cm 0.014 guide wire [place] 1 [id number] 794007 578327 947770 8 [place] Eagley[place] IVUS Catheter Medtronic Medtronic 1 [id number] 300642 560631 0 [id number] Resolute 3.0 X 15 stent Cordis 5Fr Cardinal 1 [id number] 5 Pigtail Health Catheter (MP) Cordis 6Fr Cardinal 1 EX600 544954 880705 998895 10 [facility] Conveneer Signature Audit [place] Stage Time Signature Unsigned Intra-Procedure 10/10/2016 Yanique Oscar 1:15:34 PM RT(R) Signatures Monitor : Yanique Oscar Signature : RT Date : Time : [place] [id number] [facility] [place] [address]
--- NOTE | ~2016-10-10 | OP ---
PATIENT NAME: PRAVEEN SIFUENTES MEDICAL RECORD: [id number] :51 LOCATION:D.M2 D.2125 ADMISSION DATE:10/10/16 SURGEON: SAHARA KRISHNAN MD DATE OF OPERATION: 10/10/2016 PROCEDURES: 1. Aortofemoral runoff. 2. Abdominal aortography. INDICATION: Claudication, peripheral vascular disease and difficulty to obtain access for cardiac intervention through right femoral approach. PROCEDURE IN DETAIL: After informed consent was obtained and after detailed explanation of risks, benefits as well as alternative therapies, the patient elected to proceed with angiogram and aortofemoral runoff. The right femoral area is prepped and draped in normal sterile fashion. Right femoral artery was cannulated via modified Seldinger technique with placement of 6-Tajik sheath. All catheters exchanged through this sheath. FINDINGS: The abdominal aortography was performed. The catheter was pulled down for aortofemoral runoff. Abdominal aortography reveals no significant abdominal aortic disease. No dissection or aneurysm formation. No renal artery stenosis. RIGHT LEG: A. Iliac: The common internal and external iliacs are relatively heavily calcified tortuous, but no flow-limiting stenosis. B. Femoral system: The common superficial and deep femoral have moderate irregularities, but no flow-limiting stenosis. C. Popliteal and infrapopliteal vessels are mildly diffusely diseased, but patent giving good 3-vessel runoff to the foot. LEFT FOOT: A. Iliac: The common internal and external iliacs are relatively heavily calcified tortuous, but no flow-limiting stenosis. B. Femoral system: The common superficial and deep femoral have moderate irregularities, but no flow-limiting stenosis. C. Popliteal and infrapopliteal vessels are mildly diffusely diseased, but patent giving good 3-vessel runoff to the foot. OVERALL IMPRESSION: Minimal peripheral vascular disease is present. The iliacs are more tortuous than disease. Continue medical management of the peripheral vascular disease and peripheral risk factors. TRANSINT:[id number] Voice Confirmation ID: [id number] DOCUMENT ID: [id number] SAHARA KRISHNAN MD CC: [id number] DICTATION DATE: 10/10/16 1311 COMPOSITE TECHNICIAN: 10/10/16 2219 DIS IN 10/10/16 [facility] [address] [place] [id number]
--- NOTE | ~2016-10-10 | OP ---
PATIENT NAME: PRAVEEN SIFUENTES MEDICAL RECORD: [id number] :51 LOCATION:D.M2 D.2125 ADMISSION DATE:10/10/16 SURGEON: SAHARA KRISHNAN MD DATE OF OPERATION: 10/10/2016 PROCEDURE: 1. PTCA stent LAD. 2. Intravascular ultrasound of the LAD. 3. Selective coronary angiography. INDICATION: Angina and coronary artery disease. PROCEDURE IN DETAIL: After informed consent was obtained and after detailed explanation of risks, benefits as well as alternative therapies, the patient elected to proceed with angiogram and angioplasty. The right femoral area had a preexisting sheath from peripheral aortofemoral runoff. All catheters exchanged through this sheath. FINDINGS: 1. The left main with no significant angiographic disease. 2. Left circumflex has previously placed stent. The stent is widely patent. No disease elsewise throughout the circumflex or its branches. 3. The right coronary has previously placed stents, these are widely patent with no significant restenosis. No disease elsewise. 4. The left anterior descending has an 80% stenosis proximally confirmed by intravascular ultrasound. PTCA STENT OF THE LAD: The stent used was a 3.0 x 15 mm Resolute. Result was 0% residual stenosis. OVERALL IMPRESSION: Successful percutaneous transluminal coronary angioplasty stent of the left anterior descending going from 80% initial stenosis to 0% residual. TRANSINT:[id number] Voice Confirmation ID: [id number] DOCUMENT ID: [id number] SAHARA KRISHNAN MD CC: [id number] DICTATION DATE: 10/10/16 1311 ROLL HANDLER: 10/10/16 2221 DIS IN 10/10/16 [place] [address] [place] [address]
--- NOTE | ~2016-10-10 | DS ---
PATIENT:PRAVEEN SIFUENTES :51 MEDICAL RECORD: [id number] DISCHARGE SUMMARY ADMISSION DATE: 10/10/16 DISCHARGE DATE: 10/10/16 DIAGNOSES: 1. Angina. 2. Coronary artery disease. 3. Recent percutaneous transluminal coronary angioplasty stent of the left circumflex and right coronary artery with percutaneous transluminal coronary angioplasty stent of the left anterior descending this admission. 4. Peripheral vascular disease. 5. Chronic obstructive pulmonary disease. 6. Smoking history. HISTORY OF PRESENT ILLNESS: Mrs. Sifuentes presents with chest pain. She had 2 components of her chest pain, typical anginal component as well as a pleuritic component. For the pleuritic she was given a Medrol Dosepak and this did respond, she underwent cardiac catheterization with intravascular ultrasound of the LAD revealing 80% stenosis to the LAD, underwent successful PTCA stent of the LAD, had no further anginal symptomatology. She was discharged home to continue current medications as she is already on aspirin and Plavix. We will follow up with [facility] as previously scheduled for 1 month. TRANSINT:[id number] Voice Confirmation ID: [id number] DOCUMENT ID: [id number] SAHARA KRISHNAN MD CC: [id number] DICTATION DATE: 10/10/16 1308 SENIOR EDUCATION SPECIALIST: 10/11/16 0334 DIS IN 10/10/16 [facility] [address] [place] [id number]
--- NOTE | 2016-10-10 01:09 | NUR ---
ARRIVED TO FLOOR VIA STRETCHER FROM [facility]. PLACED ON TELEMETRY. LEFT HAND SALINE LOCKED. ORIENTED TO FLOOR, CALL LIGHT IN REACH. WILL CONTINUE TO MONITOR. SEE NURSE ASSESSMENT.
--- NOTE | 2016-10-10 03:13 | NUR ---
DR. JANE FOR INCREASING CHEST PAIN, SEE NEW ORDERS.
--- NOTE | 2016-10-10 06:31 | NUR ---
NO CHANGES FROM PREVIOUS ASSESSMENT, REMAINS NPO UNTIL SEEN BY CARDIOLOGY. CALL LIGHT IN REACH.
--- NOTE | 2016-10-10 07:15 | NUR ---
RESTING QUIETLY NAD NOTED
[2016-10-10 08:00] VITALS: BP 98/66
[2016-10-10 09:58] LABS: HEMATOCRIT 40.6 % (36.0-48.0); HEMOGLOBIN 13.5 g/dL (12-16); LYMPHOCYTES 23.4 % (15-50); MCH 31.2 pg (26.0-34.0); MCHC 33.3 g/dL (31.0-37.0); MCV 93.8 fL (80.0-100.0); PLATELET COUNT 153 10x3/uL (130-400); RBC 4.33 10x6/uL (4.00-5.40); RDW 13.4 % (11.5-14.5); WBC 6.3 10x3/uL (4.8-10.8)
--- NOTE | 2016-10-10 10:02 | NUR ---
ASSESSMENT COMPLETED. TELEMERTY SHOWS SR 64. 02 AT 2 L/M PER NC. LEFT WRIST SL. PT HAD A CATH THROUGH RIGHT CROIN LAST WEEK. WILL MONITOR
[2016-10-10 10:09] LABS: ANION GAP 13.2 mmol/L (8-16); CALCIUM 8.6 mg/dL (8.5-10.1); CARBON DIOXIDE 26.9 mmol/L (21.0-32.0); CREATININE - SERUM 1.2 mg/dL (0.6-1.3); POTASSIUM - SERUM 4.1 mmol/L (3.5-5.1)
[2016-10-10 10:19] LABS: BASOPHILS 0.3 % (0.0-2.0); EOSINOPHILS 0.8 % (0-7); MONOCYTES 10.9 % (2-11)
--- NOTE | 2016-10-10 12:40 | HP ---
PATIENT: PRAVEEN SIFUENTES MEDICAL RECORD: [id number] ACCOUNT: [id number] LOCATION:[address] : 51 ADMISSION DATE: 10/10/16 HISTORY AND PHYSICAL EXAMINATION HISTORY OF PRESENT ILLNESS: A 60-year-old with a history of recent intervention with medicated stent to Circ. Has a history of dyslipidemia, hypertension. Had onset of chest pain, both typical and atypical features. Had elevated enzymes, difficult to interpret in the face of recent intervention; however, in addition to the pleuritic component, she says this is exactly the same symptomatology she had previously. We are asked to see her concerning her cardiovascular status. PAST MEDICAL HISTORY: Includes: 1. History of hypertension. 2. Coronary artery disease as described above. 3. Dyslipidemia. ALLERGIES: None known. MEDICATIONS: Typically on admission include Plavix 75 every day, Lipitor 20 every day, Imdur 30 every day, propranolol 20 b.i.d., aspirin 81 every day, Lexapro 20 every day, Prilosec 20 every day. SOCIAL HISTORY: She lives in [place]. She takes care of all ADLs. No set of exercise program. REVIEW OF SYSTEMS: The patient reports easy bruising but reports no swollen glands. The patient reports no fever, no night sweats, no significant weight gain, no significant weight loss. No significant exercise tolerance. The patient reports no dry eyes, no irritation, no vision change. Patient reports no difficulty hearing and no ear pain. Patient reports no frequent nose bleeds or nose and sinus problems. Patient reports on arm pain on exertion. No shortness of breath while lying down. No history of heart murmur. Patient reports no cough, no wheezing or coughing up blood. Patient reports no abdominal pain, no vomiting. Normal appetite. No diarrhea and not vomiting blood. No nausea and no constipation. Patient reports no incontinence. No difficulty urinating. No hematuria. No increased frequency. Patient reports no muscle aches. No weakness, no arthralgias, no back pain. No swelling of the extremities. Patient reports no abnormal mole, no jaundice, no rashes. Reports no loss of consciousness. No weakness and no numbness. No seizures, dizziness, or headaches. The patient reports no depression, no sleep disturbance, feeling safe in a relationship and no alcohol abuse. Patient reports on fatigue. Reports no runny nose or sinus pressure. No itching, no hives, and no frequent sneezing. PHYSICAL EXAMINATION: GENERAL: Pleasant female in no acute distress. VITAL SIGNS: Blood pressure 135/62, pulse 76 and regular. HEENT: Normocephalic, atraumatic. NECK: No JVD or bruit. HEART: Regular. LUNGS: Thompson are clear. ABDOMEN: Soft, nontender. EXTREMITIES: Pulses 2+. There is no edema. NEUROLOGIC: Grossly intact. HISTORY AND PHYSICAL [id number] PRAVEEN SIFUENTES DIAGNOSTIC DATA: ECG without acute change. IMPRESSION: Given her symptomatology, borderline enzymes, we will plan for revisualization. One dose of steroids for pleuritic component of pain. Further recommendations based on above. TRANSINT:[id number] Voice Confirmation ID: [id number] DOCUMENT ID: [id number] RITIKA GARRIDO MD at 1240 CC: [id number] DICTATION DATE: 10/10/16832 POWERPLANT OPERATOR: 10/10/16 0920 ADM [place] [id number] [place] [id number]
--- NOTE | 2016-10-10 13:56 | NUR ---
BACK FROM BLUE PRINT CONTROL CLERK. V/S STABLE. RIGHT GROIN SOFT WITH DRSG DRY AND INTACT. PPP. IV TO LEFT HAND WITH NS AT 100.FAMILY AT BEDSIDE.WILL MONITOR
[2016-10-10] MEDS ORDERED: MEDROL DOSE PACK4 MG PO (14:04)
--- NOTE | 2016-10-10 15:57 | NUR ---
LYING QUIETLY WITH CALL LIGHT IN REACH.RIGHT GROIN SOFT WITH DRSG DRY AND INTACT. PPP. TELEMERTY SHOWS SR. WILL MONITOR
--- NOTE | 2016-10-10 16:22 | NUR ---
RIGHT GROIN SOFT WITH DRSG DRY AND INTACK, V/S STABLE. WILL MONITOR
--- NOTE | 2016-10-10 18:05 | NUR ---
PA DISCHARGED. IV DCD WITH TIP INTACT. RIGHT GROIN DRSG DRY AND INTACK . NO BLEEDING. TO PRIVATE CAR PER WHEEL CHAIR.
== END 2016-10-10 18:18 | disposition home or self-care (01) ==
LOC: OBSVTIME → D.CATH 01:09 → EDSTATUS 11:00 → D.M2 18:18 → D.CATH 18:18 → D.M2 23:38
PROVIDERS: Internal Medicine Interventional Cardiology
DX: I25.10 Atherosclerotic heart disease of native coronary artery without angina pectoris (principal); I10 Essential (primary) hypertension; E78.5 Hyperlipidemia, unspecified; Z95.5 Presence of coronary angioplasty implant and graft
CPT/HCPCS: 92978; C9600